=== PATIENT | male | born 1980 | race Caucasian/White ===

== ENCOUNTER 2020-12-06 13:44 | Emergency (ER) | payer SELFPAY ==
[2020-12-06] MEDS: Ibuprofen 800 MG Tab PO ONE (15:17)
--- NOTE | 2020-12-06 15:26 | EDM.PDOC ---
ED HPI GENERAL MEDICAL PROBLEM - General Chief Complaint: Lower Extremity Injury/Pain Stated Complaint: TWISTED KNEE AND CANT WALK Time Seen by Provider: 12/06/20 15:01 - History of Present Illness INITIAL COMMENTS - FREE TEXT/NARRATIVE: Patient presents with left knee injury. Patient was walking he states there was a twisting motion with resulting pain to the left knee. Patient did not fall afterwards. There is no head or neck injury. No numbness or weakness or cold extremity. Patient did not directly hit his knee against anything and there was no fall afterwards. There is moderate discomfort worse with movement left knee Pain Score (Numeric/FACES): 10 - Related Data Allergies Allergy/AdvReac Type Severity Reaction Status Date / Time No Known Allergies Allergy Verified 12/06/20 14:57 Home Meds: Home Meds . [No Known Home Meds] 12/06/20 [History] Past Medical History - Past Health History Medical/Surgical History: Denies Medical/Surgical History Review of Systems - Review of Systems Review Of Systems: See Below Cardiovascular: Reports: Other (No cold extremity) Musculoskeletal: Reports: Joint Pain Skin: Denies: Rash Neurological: Denies: Numbness, Weakness ED EXAM, GENERAL - Physical Exam Exam: See Below Free Text/Narrative:: Fracture diagnosis: Medial collateral ligament strain, medial meniscus injury, internal derangement otherwise in the knee, fracture, dislocation, other Course - Vital Signs Text/Narrative:: Differential diagnosis: Medial collateral ligament strain, meniscal injury, other internal derangement, fracture, dislocation, other Patient presents with knee injury. X-rays negative. Patient still with significant tenderness. Perhaps there could be medial meniscal degeneration pain or medial collateral ligament strain or other internal derangement of the knee. Otherwise the patient has no ligamentous instability on exam. The extremity is otherwise neurovascularly intact. He is unable to put on weight so we will given a knee immobilizer with crutches. Orthopedic follow-up discussed Last Recorded V/S: Last Vital Signs Temp 37.1 C 12/06/20 14:30 Pulse 83 12/06/20 14:30 Resp 18 12/06/20 14:30 BP 137/83 12/06/20 14:30 Pulse Ox 97 12/06/20 14:30 - Orders/Labs/Meds Orders: Active Orders 24 hr Category Date Time Status DME for Discharge [COMM] Stat Oth 08/22/21 16:34 Ordered DME for Discharge [COMM] Stat Oth 12/06/20 16:35 Ordered Meds: Medications Discontinued Medications Generic Name Dose Route Start Last Admin Trade Name Chilo PRN Reason Stop Dose Admin Ibuprofen 800 mg 12/06/20 15:05 12/06/20 15:17 Ibuprofen 800 Mg Tab PO 12/06/20 15:06 800 mg ONETIME ONE Administration Departure - Departure Time of Disposition: 16:37 Disposition: Home, Self-Care 01 Condition: Good Clinical Impression: Knee pain, left - Discharge Information Instructions: Acute Knee Pain, Adult Referrals: PCP,None [Primary Care Provider] - Forms: ED Department Discharge Additional Instructions: Use ibuprofen and Tylenol for pain. Use knee immobilizer and crutches to ambulate. Follow-up with orthopedic doctor in 1 week if symptoms are persisting. The following information is given to patients seen in the emergency department who are being discharged to home. This information is to outline your options for follow-up care. We provide all patients seen in our emergency department with a follow-up referral. The need for follow-up, as well as the timing and circumstances, are variable depending upon the specifics of your emergency department visit. If you don't have a primary care physician on staff, we will provide you with a referral. We always advise you to contact your personal physician following an emergency department visit to inform them of the circumstance of the visit and for follow-up with them and/or the need for any referrals to a consulting specialist. The emergency department will also refer you to a specialist when appropriate. This referral assures that you have the opportunity for follow-up care with a specialist. All of these measure are taken in an effort to provide you with optimal care, which includes your follow-up. Primary care clinics in the area: [facility] - [facility] [address] [place], [place] [id number] [facility] [address] [place] [address] Under all circumstances we always encourage you to contact your private physician who remains a resource for coordinating your care. When calling for follow-up care, please make the office aware that this follow-up is from your recent emergency room visit. If for any reason you are refused follow-up, please contact the [facility] Department at and asked to speak to the emergency department charge nurse. Sepsis Event Note (ED) - Evaluation Sepsis Screening Result: No Definite Risk - Focused Exam Vital Signs: Vital Signs Temp Pulse Resp BP Pulse Ox 12/06/20 14:30 37.1 C 83 18 137/83 97 - My Orders Last 24 Hours: My Active Orders 12/06/20 16:34 DME for Discharge [COMM] Stat 12/06/20 16:35 DME for Discharge [COMM] Stat - Assessment/Plan Last 24 Hours: My Active Orders 12/06/20 16:34 DME for Discharge [COMM] Stat 12/06/20 16:35 DME for Discharge [COMM] Stat
--- NOTE | 2020-12-06 15:51 | CR ---
Indication: Twisted knee Technique: Three-views of the left knee Comparison: No comparison Findings: Normal alignment. Possible new small knee effusion. No acute fractures are seen. Soft tissue swelling. Impression: No acute fracture. Dictated by Bianca Barrera MD @ 12/06/2020 3:49:[address] Bianca Barrera @ Dec 06 2020 3:49PM
== END 2020-12-06 16:45 | disposition home or self-care (01) ==
LOC: MW.ED 13:44
DX: M25.562 Pain in left knee (principal); X50.1XXA Overexertion from prolonged static or awkward postures, initial encounter
CPT/HCPCS: 73562; 99283; A9270; 99282